=== PATIENT | male | born 1955 | race Caucasian/White ===

== ENCOUNTER 2022-07-09 11:18 | Emergency (ER) | payer OTHER, MEDICARE ==
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
[2022-07-09] MEDS ORDERED: IBUPROFEN 600 MG TABLET PO STA (12:46)
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
[2022-07-09 14:55] VITALS: BP 124/86
== END 2022-07-09 15:03 | disposition home or self-care (01) ==
LOC: ED 11:18
DX: S16.1XXA Strain of muscle, fascia and tendon at neck level, initial encounter (principal); V49.59XA Passenger injured in collision with other motor vehicles in traffic accident, initial encounter; Y92.411 Interstate highway as the place of occurrence of the external cause
CPT/HCPCS: 70450; 72125; 99283; 99284; A9270